=== PATIENT | male | born 1935 | race Caucasian/White ===

== ENCOUNTER 2016-05-18 12:36 | Inpatient (IN) | END 2016-05-21 16:00 | disposition home health service (06) | DRG 871 | DX: A41.9 Sepsis, unspecified organism (principal); J18.9 Pneumonia, unspecified organism; N39.0 Urinary tract infection, site not specified; D53.1 Other megaloblastic anemias, not elsewhere classified; F10.10 Alcohol abuse, uncomplicated; Z72.0 Tobacco use; E80.6 Other disorders of bilirubin metabolism; R65.20 Severe sepsis without septic shock; J43.2 Centrilobular emphysema ==

== ENCOUNTER 2017-10-15 10:56 | Emergency (ER) | END 2017-10-15 13:40 | disposition home or self-care (01) ==

== ENCOUNTER 2017-10-17 12:31 | Emergency (ER) | END 2017-10-17 17:03 | disposition home or self-care (01) ==

== ENCOUNTER 2017-10-20 10:03 | Emergency (ER) | END 2017-10-20 11:20 | disposition home or self-care (01) ==

== ENCOUNTER 2017-10-23 10:07 | Emergency (ER) | END 2017-10-23 11:20 | disposition home or self-care (01) ==